=== PATIENT | male | born 2005 | race Caucasian/White ===

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

== ENCOUNTER 2024-06-11 13:28 | Emergency (ER) | payer OTHER, SELFPAY ==
[2024-06-11 13:32] VITALS: BP 123/82; PULSE 78; RESP 16; TEMP 36.6; O2SAT 95
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
== END 2024-06-11 13:56 | disposition home or self-care (01) ==
PROVIDERS: Emergency Provider Emergency Medicine; PCP Nurse Practitioner Family
DX: T23.101A Burn of first degree of right hand, unspecified site, initial encounter (principal); T31.0 Burns involving less than 10% of body surface; Y99.0 Civilian activity done for income or pay; X13.1XXA Other contact with steam and other hot vapors, initial encounter; Y93.G1 Activity, food preparation and clean up
CPT/HCPCS: 99282; 99283

== ENCOUNTER 2024-12-12 12:53 | Emergency (ER) | payer OTHER, SELFPAY ==
[2024-12-12 12:56] VITALS: BP 143/83; PULSE 95; RESP 20; TEMP 36.4; O2SAT 96
[2024-12-12 12:59] VITALS: BP 143/83; PULSE 95; RESP 20; TEMP 36.4; O2SAT 96
--- NOTE | 2024-12-12 14:37 | ED.GENADUL_ITS ---
Discharge Plan Disposition Patient Disposition: Home Condition: Stable Discharge Details Chief Complaint: RespSymp Clinical Impression: Pharyngitis Primary Care Provider: Deangelo Don ED Provider: Javi Abreu Discharge Instructions Additional Instructions: Your strep, flu and COVID test were negative today. You likely have another virus causing your symptoms. You can take 1000 mg of acetaminophen and 600 mg of ibuprofen every 8 hours as needed. If not improving in a few days follow-up with your primary care provider or express care. If you feel more ill, have severe worsening pain or inability swallow liquids return to the emergency depar tment for reevaluation. HPI General Mode of arrival: ambulatory . Date/Time Provider Initiated Documentation: 12/12/24 13:55 . Limitations to Documentation: no limitations . Information obtained by: patient . History of Present Illness 19 year old M presents to the emergency department with the chief complaint of sore throat and cough, described as moderate, Patient started experiencing this day(s) (3) and it has been constant. No relieving factors improve symptom(s), No exacerbating factors reported . Patient notes cough and fever/chills; denies chest pain, nausea/vomiting and shortness of breath. Patient did receive the following treatments prior to arrival, none Related Data Allergies Allergy/AdvReac Type Severity Reaction Status Date / Time No Known Allergies Allergy Verified 12/12/24 12:59 General Stated Complaint: RespSymp JAME: 4 Review of Systems All systems reviewed & are unremarkable except as noted in HPI and below Constitutional Constitutional: Reports fever(s) and Denies weakness ENT Ears, Nose, Mouth, and Throat: Reports sore throat Cardiovascular Cardiovascular: Denies chest pain and Denies dyspnea Respiratory Respiratory: Reports cough and Denies dyspnea Gastrointestinal Gastrointestinal: Denies abdominal pain, Denies nausea and Denies vomiting Integumentary/Breasts Skin/Breast: Denies rash Neurologic Neurologic: Denies weakness Exam Const General: no acute distress Orientation: alert HENMT Head: normal to inspection Ears: external ears normal General nose exam: external nose normal Mouth: oral mucosae normal and moist mucous membranes Throat: uvula midline and posterior oropharynx abnormal erythema; no exudates Eyes General: appearance normal, both eyes and all related structures Neck Neck: normal visual inspection, full ROM, no lymphadenopathy and no meningeal signs Resp Effort & Inspection: normal respiratory effort and able to speak in complete sentences Auscultation: clear to auscultation bilaterally Cardio Rate: regular rate Skin General skin exam: no rashes or lesions noted Neuro General: patient alert and patient oriented x3 Extrem General: normal to inspection Psych Mental Status: mental status grossly normal Course Vital Signs Vital signs: Vital Signs Temperature 36.4 C L 12/12/24 12:56 Pulse 95 H 12/12/24 12:56 Respiratory Rate 20 12/12/24 12:56 Blood Pressure 143/83 H 12/12/24 12:56 Pulse Oximetry 96 12/12/24 12:56 Temperature 36.4 C L 12/12/24 12:59 Pulse 95 H 12/12/24 12:59 Respiratory Rate 20 12/12/24 12:59 Respiratory Effort Normal 12/12/24 12:59 Respiratory Depth Normal 12/12/24 12:59 Blood Pressure 143/83 H 12/12/24 12:59 Blood Pressure Position Sitting 12/12/24 12:59 Pulse Oximetry 96 12/12/24 12:59 Oxygen Delivery Method Room Air 12/12/24 12:59 Oxygen Flow Rate 0 12/12/24 12:59 Lab/Test Results Lab/Test Results: 12/12/24 13:03 Tonsil - Not Specified Group A Streptococcus Culture - Pending POC Strep Test-BILLY(Rapid) Start: 12/12/24 13:17 Freq: .Rapid Strep Test Status: Active Protocol: Document 12/12/24 13:17 CHRIS (Rec: 12/12/24 13:17 CHRIS [id number]) Strep test-BILLY(Rapid)-POC POC-Strep test-BILYL (Rapid) Negative POC-Strep test-BILLY (Rapid) Negative Medical Decision Making 19-year-old male comes in with several days of sore throat and cough and states he went he had fever but none since. He denies any difficulty breathing or swallowing though he says it does hurt when he swallows. He is well-appearing on exam speaking full sentences. He has no stridor or drooling. He had a strep and [id number] flu and COVID test done prior to my exam which was negative. He has clear lung sounds, no JVD, full range of motion of his neck with no pain over the hyoid. His posterior pharynx has mild erythema without exudates, midline uvula. He has no restricted neck movements. I suspect viral pharyngitis. He has no findings on exam or history to suggest retropharyngeal abscess, epiglottitis or peritonsillar abscess. I do not feel antibiotics are indicated at this time. I will provide a one-time dose of dexamethasone. He will follow-up with either his primary care or express care based on improving in a few days and return precautions given Differential Diagnosis Differential Diagnosis: Strep versus viral pharyngitis Lab Data Lab results reviewed: Yes I reviewed the patient's lab results. Quality:SDOH Health Related Social Needs: No Data to Display PFSH All Active Problems (Updated 12/12/24 @ 14:42 by Javi Abreu MD) Pharyngitis (Acute) Immunization due (Acute) Acne (Acute) Anxiety (Chronic) ADHD (attention deficit hyperactivity disorder) (Acute) Medical History (Updated 12/12/24 @ 14:42 by Javi Abreu MD) H/O gastric ulcer Foot pain, bilateral Back pain Family History (Updated 11/26/23 @ 10:44 by Lorna Santos) Mother Colon cancer Depression Diabetes Obesity Chronic mental illness Father No problems noted. Social History (Updated 11/26/23 @ 10:43 by Lorna Santos) Smoking/Tobacco Use Status: Never Second Hand Exposure: No Smoking risk assessment performed?: Yes Alcohol Intake: never Drug use: Never Substance use type: does not use Household members: family Education Level: high school Details: 12th grade 22-23 Pets and animals: Yes Pets and animals: cat(s) Sexually active: No Do you think of yourself as: straight/heterosexual Current gender identity: male What is your relationship status?: never How often do you talk on the phone with friends or family?: twice per week How often do you get together with friends or relatives?: twice per week How often do you attend congregational or jehovah's witness services?: decline to answer Do you belong to any clubs or organized social groups?: no Panel score (0-1 are the most socially isolated patients): 1 What type of physical activity do you participate in: none Makeda/Caodaism: Non sikh Special makeda needs: No Seatbelt use: always Helmet use: Yes Helmet use: always Drive intox or ride w/intox 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
[2024-12-12] MEDS: Dexamethasone 4 MG TAB 10 MG PO (14:41)
== END 2024-12-12 14:45 | disposition home or self-care (01) ==
PROVIDERS: Emergency Provider Emergency Medicine; PCP Nurse Practitioner Family
DX: J02.9 Acute pharyngitis, unspecified (principal); R05.9 Cough, unspecified; R50.9 Fever, unspecified
CPT/HCPCS: 87426; 87880; 99283; 87081; J8540

== ENCOUNTER 2025-03-19 03:37 | Outpatient (CLI) | payer OTHER, SELFPAY ==
[2025-03-19 14:51] LABS: Hemoglobin A1C 5.5 % (<5.7)
[2025-03-19 15:57] LABS: Calculated LDL 103 mg/dL (<100); Cholesterol 165 mg/dL (<200); HDL Cholesterol 37 mg/dL (>or=40); Triglyceride 127 mg/dL (<150)
== END 2025-03-19 03:38 | disposition home or self-care (01) ==
LOC: LBO 03:37
PROVIDERS: PCP Nurse Practitioner Family; Visit Provider Nurse Practitioner Family
DX: Z13.220 Encounter for screening for lipoid disorders (principal); Z13.1 Encounter for screening for diabetes mellitus
CPT/HCPCS: 36415; 80061; 83036

== ENCOUNTER 2025-06-14 20:31 | Emergency (ER) | payer OTHER, SELFPAY ==
[2025-06-14 20:33] VITALS: BP 156/70; PULSE 118; RESP 20; TEMP 36.9; O2SAT 98
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
[2025-06-14] MEDS: Acetaminophen 500 MG TAB 1000 MG PO (20:51)
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
[2025-06-14 22:34] VITALS: BP 156/70; PULSE 118; RESP 20; TEMP 36.9; O2SAT 98
== END 2025-06-14 22:35 | disposition home or self-care (01) ==
LOC: ER 21:52
PROVIDERS: Emergency Provider Emergency Medicine; PCP Nurse Practitioner Family
DX: S09.8XXA Other specified injuries of head, initial encounter (principal); V47.0XXA Car driver injured in collision with fixed or stationary object in nontraffic accident, initial encounter; Z60.8 Other problems related to social environment
CPT/HCPCS: 99283; 99284; 70450; 72125